=== PATIENT | female | born 1990 | race Caucasian/White ===

== ENCOUNTER 2016-12-04 21:22 | Emergency (ER) | payer MEDICAID ==
[~2016-12-04] VITALS: Ht 165.1 cm; Wt 95.9 kg
[~2016-12-04 21:22] MED LIST: ALPR-475 PO; AMPH30CA6 PO; LISD50CA2 PO; OMEP20TA62 PO; ONDA4TAB7 PO; PREG150C PO; ZIPR80CA2 PO
[2016-12-04 21:23] VITALS: BP 104/70
== END 2016-12-04 22:14 | disposition home or self-care (01) ==
LOC: ED 21:45
DX: J02.0 Streptococcal pharyngitis (principal); I10 Essential (primary) hypertension; E78.5 Hyperlipidemia, unspecified; K21.9 Gastro-esophageal reflux disease without esophagitis; M79.7 Fibromyalgia; Z90.710 Acquired absence of both cervix and uterus
CPT/HCPCS: 99283

== ENCOUNTER 2018-04-12 | Emergency (ER) | payer MEDICAID, OTHER ==
[~2018-04-12] VITALS: Ht 165.1 cm; Wt 89.9 kg
[~2018-04-12] MED LIST changes: -LISD50CA2 PO; +LISD50CA3 PO
[2018-04-12 00:02] VITALS: BP 103/58
[2018-04-12] MEDS ORDERED: LIDOCAINE 1%-EPI 1:100K, 30ML ONE (00:32)
[2018-04-12] MEDS ORDERED: DIPH,PERTUSS(ACELL),TET VAC/PF 0.5 ML IM-VACC ONE ×2 (01:00→01:11)
== END 2018-04-12 01:46 | disposition home or self-care (01) ==
LOC: ED 01:01
DX: L03.221 Cellulitis of neck (principal); L02.11 Cutaneous abscess of neck; F15.10 Other stimulant abuse, uncomplicated; F17.210 Nicotine dependence, cigarettes, uncomplicated
CPT/HCPCS: 90471; 90715